=== PATIENT | male | born 2005 | race Caucasian/White ===

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

== ENCOUNTER 2023-03-06 19:03 | Emergency (ER) | payer BC ==
[~2023-03-06] VITALS: Ht 177.8 cm; Wt 68.0 kg
[2023-03-06] MEDS ORDERED: CELEXA40 MG PO (19:26)
== END 2023-03-06 21:18 | disposition home or self-care (01) ==
LOC: ED 19:03
DX: S01.112A Laceration without foreign body of left eyelid and periocular area, initial encounter (principal); Z79.899 Other long term (current) drug therapy; Z90.89 Acquired absence of other organs; W22.8XXA Striking against or struck by other objects, initial encounter; Y93.89 Activity, other specified; Y92.89 Other specified places as the place of occurrence of the external cause; Y99.8 Other external cause status

== ENCOUNTER 2023-11-24 14:06 | Emergency (ER) | payer BC ==
[~2023-11-24] VITALS: Ht 180.3 cm; Wt 65.8 kg
[~2023-11-24 14:06] MED LIST changes: +CELEXA40 MG PO
== END 2023-11-24 18:06 | disposition home or self-care (01) ==
LOC: ED 14:06
DX: S01.81XA Laceration without foreign body of other part of head, initial encounter (principal); Z98.890 Other specified postprocedural states; X58.XXXA Exposure to other specified factors, initial encounter; Y93.89 Activity, other specified; Y92.89 Other specified places as the place of occurrence of the external cause; Y99.8 Other external cause status

== ENCOUNTER → 2024-10-12 | Outpatient (CLI) | payer BC ==
[2024-10-12 07:32] LABS: HEMATOCRIT 45.7 % (42.0-52.0); MEAN CELL VOLUME 87.2 fl (80.0-94.0); MEAN CORPUSCULAR HGB 29.2 pg (27.0-31.0); MEAN CORPUSCULAR HGB CONC 33.5 g/dl (33.0-37.0); MEAN PLATELET VOLUME 9.4 fl (9.6-12.3); RED BLOOD COUNT 5.24 10*6/uL (4.50-5.90); RED CELL DISTRI WIDTH 11.9 % (0-14.5); WHITE BLOOD COUNT 5.5 10*3/uL (4.8-10.8)
[2024-10-12 07:58] LABS: ALKALINE PHOSPHATASE 94 U/L (46-116); BUN 10 mg/dl (9-23); CHLORIDE 102 mmol/L (98-107); CHOLESTEROL 210 mg/dL (<200); LDL CHOLESTEROL 138 mg/dL (9-159); POTASSIUM 4.7 mmol/L (3.4-5.1); SGPT/ALT 10 U/L (5-49); TOTAL PROTEIN 7.8 gm/dL (6.0-8.0); TRIGLYCERIDES 85 mg/dl (<150)
== END | disposition home or self-care (01) ==
LOC: LAB 07:12
PROVIDERS: ATTEND Family Medicine
DX: Z00.00 Encounter for general adult medical examination without abnormal findings (principal); Z13.21 Encounter for screening for nutritional disorder; I25.10 Atherosclerotic heart disease of native coronary artery without angina pectoris

== ENCOUNTER 2025-11-20 18:30 | Emergency (ER) | payer BC ==
[~2025-11-20] VITALS: Ht 180.3 cm; Wt 81.6 kg
[2025-11-20] MEDS ORDERED: MELOXICAM15 MG PO (20:47)
[2025-11-20] MEDS ORDERED: ACETAMINOPHEN 325 MG TAB PO ONE (20:50)
[2025-11-20] MEDS ORDERED: Meloxicam 15 MG TAB PO ONE (20:50)
== END 2025-11-20 20:54 | disposition home or self-care (01) ==
LOC: ED 18:30
DX: S46.911A Strain of unspecified muscle, fascia and tendon at shoulder and upper arm level, right arm, initial encounter (principal); F32.A Depression, unspecified; W01.0XXA Fall on same level from slipping, tripping and stumbling without subsequent striking against object, initial encounter; Y93.44 Activity, trampolining; Y92.89 Other specified places as the place of occurrence of the external cause; Y99.8 Other external cause status